=== PATIENT | female | born 1965 | race African-American/Black ===

== ENCOUNTER 2020-10-12 15:07 | Outpatient (REF) | payer OTHER, SELFPAY ==
[2020-10-15 01:52] LABS: HPV mRNA E6/E7 rflx Not Detected (Not Detected)
== END 2020-10-12 15:08 | disposition home or self-care (01) ==
LOC: HO.LAB 15:07
PROVIDERS: PCP Internal Medicine; Visit Provider Obstetrics & Gynecology
DX: Z01.419 Encounter for gynecological examination (general) (routine) without abnormal findings (principal); Z11.51 Encounter for screening for human papillomavirus (HPV); N94.9 Unspecified condition associated with female genital organs and menstrual cycle
CPT/HCPCS: 36415; 87624; 88142

== ENCOUNTER 2020-10-21 11:14 | Outpatient (REF) | payer OTHER, SELFPAY ==
--- NOTE | ~2020-10-21 | US_ITS ---
EXAMINATION: ULTRASOUND OF THE PELVIS CLINICAL INFORMATION: Adnexal fullness.. COMPARISON: 12/19/2019. TECHNIQUE: Transabdominal and transvaginal pelvic ultrasound. A transvaginal study was performed in addition to the transabdominal study which did not yield an adequate examination of the uterus and ovaries due to superimposed distended gas-filled loops of bowel. FINDINGS: The uterus is normal in size, measuring 7.7 x 4 x 5.2 cm longitudinally, anteroposteriorly and transversely. The endometrial stripe thickness is normal, measuring 0.5 cm in thickness. No focal myometrial mass is seen. There is somewhat heterogeneous appearance of the myometrium with cystic spaces. Nabothian cysts are noted. The right ovary is visualized and appears normal, measuring 2.4 x 1.4 x 2.1 cm. The left ovary is not seen. No adnexal mass or free fluid collection seen. US/US pelvic complete IMPRESSION: No pelvic mass. The left ovary is not visualized..
--- NOTE | ~2020-10-21 | US_ITS ---
EXAMINATION: ULTRASOUND OF THE PELVIS CLINICAL INFORMATION: Adnexal fullness.. COMPARISON: 12/19/2019. TECHNIQUE: Transabdominal and transvaginal pelvic ultrasound. A transvaginal study was performed in addition to the transabdominal study which did not yield an adequate examination of the uterus and ovaries due to superimposed distended gas-filled loops of bowel. FINDINGS: The uterus is normal in size, measuring 7.7 x 4 x 5.2 cm longitudinally, anteroposteriorly and transversely. The endometrial stripe thickness is normal, measuring 0.5 cm in thickness. No focal myometrial mass is seen. There is somewhat heterogeneous appearance of the myometrium with cystic spaces. Nabothian cysts are noted. The right ovary is visualized and appears normal, measuring 2.4 x 1.4 x 2.1 cm. The left ovary is not seen. No adnexal mass or free fluid collection seen. US/US transvaginal IMPRESSION: No pelvic mass. The left ovary is not visualized..
== END 2020-10-21 11:15 | disposition home or self-care (01) ==
LOC: HO.US 11:14
PROVIDERS: PCP Internal Medicine; Visit Provider Obstetrics & Gynecology
DX: N94.9 Unspecified condition associated with female genital organs and menstrual cycle (principal)
CPT/HCPCS: 76830; 76856

== ENCOUNTER → 2020-11-02 10:45 | Outpatient (BNVA) | payer OTHER, SELFPAY | PROVIDERS: PCP Internal Medicine; Visit Provider Obstetrics & Gynecology ==

== ENCOUNTER → 2021-10-19 09:43 | Outpatient (BNVA) | payer OTHER, SELFPAY | PROVIDERS: PCP Internal Medicine; Visit Provider Obstetrics & Gynecology | DX: Z13.89 Encounter for screening for other disorder (principal) ==

== ENCOUNTER → 2021-11-04 10:24 | Outpatient (BNVA) | payer OTHER, SELFPAY | PROVIDERS: PCP Internal Medicine; Visit Provider Obstetrics & Gynecology | DX: R30.0 Dysuria (principal) | CPT/HCPCS: 99212 ==

== ENCOUNTER → 2022-12-21 15:04 | Outpatient (BNVA) | payer OTHER, SELFPAY | PROVIDERS: PCP Internal Medicine; Visit Provider Obstetrics & Gynecology ==

== ENCOUNTER 2024-01-02 14:30 | Outpatient (AMB) | payer OTHER, SELFPAY ==
--- NOTE | 2024-01-02 14:37 | MHC.OFFVIS ---
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 No complaints. Last Pap/HPV was in 10/11 was negative Last Mammogram was in 11/14 at [facility], the report is not available but the patient reported to be negative Last Colonoscopy was in 2020 at [facility], the recommendation according the patient is to repeat in 10 years [facility] Medical History Hypothyroid Surgical History Hx of tubal ligation Hx of section Family History Paternal Grandmother Lung cancer Maternal Aunt Breast cancer Social History Alcohol intake: never Patient Tobacco Use Status: Never used Tobacco Gender identity: Female Female Reproductive History Menstrual Age of Menarche: 13 control method: permanent sterilization Total pregnancies: 3 Full term: 3 Number of Living Children: 3 Date of last pap smear: 10/13/20 (negative) Review of Systems Const All systems reviewed & are unremarkable except as noted in HPI and below Card Reports as per HPI Resp Reports as per HPI GI Reports as per HPI and Reports no additional complaints Reports as per HPI Physical Exam Vital Signs: Last Vital Signs BP 140/80 H 01/02/24 14:39 BMI result Body Mass Index 34.6 Const General: cooperative, healthy appearing and comfortable Chest Chest palpation & inspection: normal inspection of the chest and normal palpation of entire chest wall Breast/axilla inspection: normal inspection of the breasts and normal inspection of the axillae Breast/axilla palpation: normal palpation of the breasts, normal palpation of the axillae and no axillary lymphadenopathy Resp Effort & Inspection: normal respiratory effort Auscultation: clear to auscultation bilaterally Percussion: percussion normal Cardio Palpation: normal PMI Rate: regular rate Rhythm: regular rhythm Heart sounds: no murmurs and no rubs Peripheral pulses: Peripheral pulses 2+ throughout GI Inspection: Yes normal to inspection Palpation (GI): Soft to palpation, nontender, no guarding, not rigid and No hepatosplenomegaly present Percussion: Yes normal to percussion Auscultation: normal bowel sounds Rectal Exam - Female: deferred General: Yes bladder normal to palpation External Female Exam: No lesion Speculum Exam - Vagina: normal appearance of the vagina, normal palpation, normal vaginal discharge and not erythematous Speculum Exam - Cervix: normal appearance of the cervix and normal palpation Bimanual exam- vagina & uterus: normal bimanual exam, normal palpation, uterine size normal, bladder normal to palpation, consistency normal and normal palpation Bimanual Exam- Adnexa, other: normal adnexae, no masses and no tenderness Assessment & Plan Assessment & Plan (1) Well woman exam: Code(s): Z01.419 - Encounter for gynecological examination (general) (routine) without abnormal findings Category: Medical Plan: Co testing done. Counseled the patient about the recommended dietary allowance of 1200 mg of Calcium & 600 IU of vitamin D. Instructions given the patient to schedule next screening Mammogram in 11/15. The patient was instructed to perform monthly self-breast exams and schedule annual exam in a year. All questions answered and the patient verbalized understanding. Coding Level of Care Code Est Pt Prev Care 40-64y(14474) Diagnoses Well woman exam Z01.419
[2024-01-02 14:39] VITALS: BP 140/80; BMI 34.6
== END 2024-01-02 14:56 | disposition home or self-care (01) ==
PROVIDERS: Visit Provider Obstetrics & Gynecology
DX: Z01.419 Encounter for gynecological examination (general) (routine) without abnormal findings (principal)
CPT/HCPCS: 99396

== ENCOUNTER → 2024-01-02 14:30 | Outpatient (BNVA) | payer OTHER, SELFPAY | PROVIDERS: Visit Provider Obstetrics & Gynecology | DX: Z01.419 Encounter for gynecological examination (general) (routine) without abnormal findings (principal) | CPT/HCPCS: 99396 ==